=== PATIENT | male | born 1950 | race Caucasian/White ===

== ENCOUNTER 2023-11-23 08:47 | Outpatient (CLI) | payer MEDICARE, SELFPAY ==
[2023-11-23 19:17] LABS: Alanine Aminotransferase 35 U/L (6-50); Albumin Level 4.2 g/dL (3.5-5.1); Alkaline Phosphatase 65 U/L (38-126); Anion Gap 4 mmol/L (8-16); Aspartate Amino Transferase 40 U/L (17-59); Bilirubin,Total 0.6 mg/dL (0.2-1.3); Blood Urea Nitrogen 14 mg/dL (9-20); Calcium 8.8 mg/dL (8.4-10.2); Carbon Dioxide 30 mmol/L (22-30); Chloride 107 mmol/L (98-107); Cholesterol 160 mg/dL (0-200); Estimated Glomerular Filt Rate > 60; Glucose 96 mg/dL (65-110); HDL Direct 41 mg/dL; Potassium 4.2 mmol/L (3.4-5.0); Sodium 141 mmol/L (137-145); Triglycerides 194 mg/dL (<150)
[2023-11-23 19:28] LABS: LDL Cholesterol Direct 93 mg/dL
[2023-11-23 19:33] LABS: Basophils Absolute Auto 0.1 K/mm3 (0.0-0.1); Basophils Percent Auto 0.8 % (0.2-1.2); Eosinophils Absolute Auto 0.2 K/mm3 (0-0.3); Eosinophils Percent Auto 2.7 % (0-4.4); Hematocrit 41.1 % (42.0-52.0); Hemoglobin 13.6 g/dL (14.0-18.0); Immature Granulocyte Absolute 0.02 K/mm3 (0.00-0.031); Immature Granulocyte Percent A 0.3 % (0-0.5); Lymphocytes Absolute Auto 1.86 K/mm3 (0.9-3.2); Mean Corpuscular HGB Conc 33.1 g/dl (32-36); Mean Corpuscular Hemoglobin 30.6 pg (26-34); Mean Corpuscular Volume 92.4 fl (80-100); Mean Platelet Volume 9.2 fl (7.4-10.4); Monocytes Absolute Auto 0.6 K/mm3 (0.1-0.6); Monocytes Percent Auto 9.4 % (2.6-8.5); Neutrophils Absolute Auto 3.5 K/mm3 (1.3-6.7); Neutrophils Percent Auto 56.8 % (45.5-73.1); Platelet Count Result 361 k/mm3 (150-375); Red Blood Count 4.45 M/mm3 (4.6-6.20); Red Cell Distribution Width 12.4 % (11.5-14.5); White Blood Count 6.2 K/mm3 (4.5-10.0)
== END 2023-11-23 08:48 | disposition home or self-care (01) ==
LOC: ANHGOSHLAB 08:48
PROVIDERS: PCP Emergency Medicine; Visit Provider Emergency Medicine
DX: R19.4 Change in bowel habit (principal); I10 Essential (primary) hypertension
CPT/HCPCS: 36415; 80053; 80061; 84443; 85025

== ENCOUNTER 2025-03-07 09:36 | Outpatient (CLI) | payer OTHER, SELFPAY ==
[2025-03-07 18:41] LABS: Alanine Aminotransferase 38 U/L (6-50); Albumin Level 4.3 g/dL (3.5-5.1); Alkaline Phosphatase 58 U/L (38-126); Anion Gap 9 mmol/L (4-12); Aspartate Amino Transferase 42 U/L (17-59); Bilirubin,Total 0.4 mg/dL (0.2-1.3); Blood Urea Nitrogen 13 mg/dL (9-20); Calcium 9.1 mg/dL (8.4-10.2); Carbon Dioxide 27 mmol/L (22-30); Chloride 106 mmol/L (98-107); Cholesterol 203 mg/dL (0-200); Estimated Glomerular Filt Rate > 60; Glucose 99 mg/dL (65-110); HDL Direct 50 mg/dL; Hemoglobin A1C 6.2 % (<5.7); Potassium 4.3 mmol/L (3.4-5.0); Sodium 142 mmol/L (137-145); Total Protein 6.8 g/dL (6.3-8.2); Triglycerides 244 mg/dL (<150)
[2025-03-07 18:52] LABS: LDL Cholesterol Direct 99 mg/dL
== END 2025-03-07 09:37 | disposition home or self-care (01) ==
LOC: ANHGOSHLAB 09:36
PROVIDERS: PCP Family Medicine; Visit Provider Nurse Practitioner
DX: R73.03 Prediabetes (principal); I10 Essential (primary) hypertension; E78.5 Hyperlipidemia, unspecified
CPT/HCPCS: 36415; 80053; 80061; 83036

== ENCOUNTER 2025-07-15 09:42 | Outpatient (CLI) | payer OTHER, SELFPAY ==
--- OUTSIDE RECORDS SUMMARY | 2025-07-15 10:44 | XMS_ITS | Patient Health Record ---
Author Organization [facility], Address [address] [place] [address] Care Team Providers Care Electromechanical Assembler Name Role Phone Checo BACA, Maykel Primary Care Provider Kyle Hanna [phone] Allergies No Known Allergies Reason For Referral No Information Medications Medication SIG (Take, Route, Frequency, Duration) Notes Start Date End Date Status Flonase Allergy Relief (fluticasone propionate) 60; Duration: 60 USE 2 SPRAYS IN EACH NOSTRIL DAILY 12/24/2018 Active Alpha Lipoic Acid 200 MG 1 capsule Orally Once a day Active Finasteride 5 MG 90 Oral; Duration: 90 12/24/2018 Active Lisinopril 20 MG 90 Oral; Duration: 90 12/24/2018 Active rosuvastatin 90; Duration: 90 12/15/2018 Active Fish Oil Concentrate (omega-3 fatty acids) 12/24/2018 Active Multivitamin 12/24/2018 Active Social History Tobacco Use: Social History Observation Description Date Details (start date - stop date) Never Smoker NA - NA Tobacco Use/Smoking Question Answer Notes Are you a: never smoker Alcohol Screen (Audit-C) Question Answer Notes Did you have a drink containing alcohol in the p ast year? No Section Notes: Never Smoker Problems Problem Type SNOMED Code ICD Code Onset Dates Problem Status W/U Status Risk Notes Problem Bilateral tinnitus (494539480903 2) H93.13-Tinnitus, bilateral (H93.13) Active confirmed Problem Pharyngeal dysphagia (413892890401 05) R13.14-Dysphagia, pharyngoesophageal phase (R13.14) 12/25/19 19 Active confirmed Plan Of Treatment No Information Insurance Providers Payer Name Payer Address Payer Phone Subscriber Number Group Number Insured Name Patient Relationship to Insured Coverage Start Date Coverage End Date Medicare Part B [employer] [address] [place] [phone] [id number] Ken Francis Self - patient is the insured [employer] [place] [address] [place] [address] [phone] [id number] Tito Ken Self - patient is the insured Medical (General) History Medical History History ICD Code Problems: None Please select any of the fol lowing conditions you have had:: hypertension,prostate enlargement (BPH) Surgical History Surgery Date(Month/Year) Cholecystectomy Eyelid Bilateral Rotator cuff right Tonsillectomy 1951
--- OUTSIDE RECORDS SUMMARY | 2025-07-15 10:44 | XMS_ITS | Clinical Summary ---
Author Organization [facility] [address] [place] [id number] Care Team Providers Care Rubber Engraver Name Role Phone Rodrigue Hanna MD Primary Care Provider [phone] Allergies No known active allergies Medications amitriptyline (ELAVIL) 50 mg tablet Take 1 tablet (50 mg total) by mouth nightly at bedtime 4 Active finasteride (PROSCAR) 5 mg tablet Take 1 tablet (5 mg total) by mouth daily 4 Active lisinopriL (PRINIVIL,ZESTR IL) 30 mg tablet Take 1 tablet (30 mg total) by mouth daily 4 Active rosuvastatin (CRESTOR) 10 mg tablet Take 1 tablet (10 mg total) by mouth daily 4 Active timolol (TIMOPTIC) 0.5 % ophthalmic solution 4 Active vodoeb-hti-BE-l ycopene-lutein 1.25-2.5-7 mg tablet Take by mouth Active fluticasone propionate (FLONASE) 50 mcg/actuation nasal spray Administer 1 spray into each nostril daily Active Active Problems Problem Noted Date Diagnosed Date Sensorineural hearing loss (SNHL) of both ears 0 04/22/2024 Surgical History Surgery Date Site/Laterality Comments CHOLECYSTECTOMY Medical History Medical History Date Comments Hypertension Shoulder bursitis H/O colonoscopy Family History Medical History Relation Name Comments No Known Problems Father No Known Problems Mother Relation Name Status Comments Father Mother Social History Tobacco Use Types Packs/Day Years Used Date Smoking Tobacco: Never Smokeless Tobacco: Never Tobacco Cessation:Counseling Given: Not Answered AUDIT-C Answer Date Recorded Q1: How often do you have a drink containing alc ohol? 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 Gender Identity Not on file Sexual Orientation Not on file Obstetrics History Last Filed Vital Signs Vital Sign Reading Time Taken Comments Blood Pressure 176/83 04/22/2024 9:16 AM CDT Pulse - - Temperature - - Respiratory Rate - - Oxygen Saturation - - Inhaled Oxygen Concentration - - Weight 78.4 kg (172 lb 12.8 oz) 04/22/2024 9:16 AM CDT Height 171.5 cm (5' 7.5) 04/22/2024 9:16 AM CDT Body Mass Index 26.66 04/22/2024 9:16 AM CDT Plan of Treatment Health Maintenance Due Date Last Done Comments Depression Screening 1948 Fall Risk Assessment 1948 Hepatitis C Screening 1948 Hepatitis B Screening 1966 Pneumococcal vaccine 65+ (1 of 1 - PCV) 1998 Well Visit 65+ 2013 Zoster Vaccine (2 of 3) 09/14/2013 07/20/2013 DTaP/Tdap/Td Vaccine (2 - Td or Tdap) 07/20/202310/2012, 03/28/2001 Influenza Vaccine (#1) 2025 Insurance MEDICARE [facility] MEDICARE Care Teams Rubber Engraver Relationship Specialty Start Date End Date Rodrigue Hanna MD [facility] [address] [address] PCP - General Family Medicine 10/26/23
[2025-07-15 12:57] LABS: Hematocrit 42.3 % (42.0-52.0); Hemoglobin 13.9 g/dL (14.0-18.0); Mean Corpuscular HGB Conc 32.9 g/dl (32-36); Mean Corpuscular Hemoglobin 30.7 pg (26-34); Mean Corpuscular Volume 93.4 fl (80-100); Platelet Count Result 344 k/mm3 (150-375); Red Blood Count 4.53 M/mm3 (4.6-6.20); White Blood Count 6.5 K/mm3 (4.5-10.0)
[2025-07-15 13:15] LABS: Alanine Aminotransferase 35 U/L (6-50); Albumin Level 4.5 g/dL (3.5-5.1); Alkaline Phosphatase 65 U/L (38-126); Anion Gap 6 mmol/L (4-12); Aspartate Amino Transferase 46 U/L (17-59); Bilirubin,Total 0.5 mg/dL (0.2-1.3); Blood Urea Nitrogen 18 mg/dL (9-20); Calcium 9.0 mg/dL (8.4-10.2); Carbon Dioxide 30 mmol/L (22-30); Chloride 104 mmol/L (98-107); Cholesterol 181 mg/dL (0-200); Estimated Glomerular Filt Rate > 60; Glucose 100 mg/dL (65-110); HDL Direct 51 mg/dL; Potassium 4.4 mmol/L (3.4-5.0); Sodium 140 mmol/L (137-145); Total Protein 7.2 g/dL (6.3-8.2); Triglycerides 222 mg/dL (<150)
[2025-07-15 13:51] LABS: Hemoglobin A1C 5.9 % (<5.7)
[2025-07-15 13:52] LABS: Thyroid Stimulating Hormone 1.700 uIU/mL (0.465-4.680)
[2025-07-15 14:12] LABS: Vitamin B12 556.0 pg/mL (239-931)
== END 2025-07-15 09:43 | disposition home or self-care (01) ==
LOC: ANHGOSHLAB 09:43
PROVIDERS: PCP Family Medicine; Visit Provider Family Medicine
DX: R73.03 Prediabetes (principal); I10 Essential (primary) hypertension; E78.5 Hyperlipidemia, unspecified; G62.9 Polyneuropathy, unspecified; Z79.899 Other long term (current) drug therapy
CPT/HCPCS: 36415; 80053; 80061; 82607; 83036; 84443; 85027

== ENCOUNTER 2025-07-24 11:21 | Outpatient (CLI) | payer OTHER, SELFPAY ==
--- NOTE | ~2025-07-24 | XR_ITS ---
EXAMINATION: XR hand RT min 3V, 07/24/2025 11:39 LOGISTICS MANAGEMENT SPECIALIST HISTORY: pain in both hands x 2 months, no inj, no surg COMPARISON: No comparisons available. Findings: No acute fracture or malalignment. 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 Impression: No acute fracture or malalignment. Reviewed, dictated and finalized at location P. STICS MANAGEMENT SPECIALIST Impression: No acute fracture or malalignment.
--- NOTE | ~2025-07-24 | XR_ITS ---
EXAMINATION: XR hand LT min 3V, 07/24/2025 11:39 SALES SUPPORT SPECIALIST HISTORY: Pain in right hand x 2 months, no inj, no surg COMPARISON: No comparisons available. Findings: No acute fracture or malalignment. 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 Impression: No acute fracture or malalignment. Reviewed, dictated and finalized at location P. S SUPPORT SPECIALIST Impression: No acute fracture or malalignment.
== END 2025-07-24 11:22 | disposition home or self-care (01) ==
LOC: GOSHIMG 11:21
PROVIDERS: PCP Family Medicine; Visit Provider Family Medicine
DX: M79.641 Pain in right hand (principal); M79.642 Pain in left hand
CPT/HCPCS: 73130